=== PATIENT | male | born 1965 | race Caucasian/White ===

== ENCOUNTER 2018-08-23 16:08 | Emergency (ER) | payer BC, OTHER ==
[2018-08-23 16:24] VITALS: BP 141/67; PULSE 89; TEMP 98.5; BMI 27.0
[2018-08-23] MEDS ORDERED: METOCLOPRAMIDE HCL INJECTION 10 MG/2 ML VIAL IVPUSH ONE (16:27)
[2018-08-23] MEDS ORDERED: predniSONE 20 MG TABLET (UD) PO ONE (16:27)
[2018-08-23] MEDS ORDERED: SODIUM CHLORIDE 1,000 ML IV STA (16:27)
[2018-08-23] MEDS ORDERED: ACETAMINOPHEN 1000 MG/100 ML VIAL (NON FORMULARY) IVPB ONE (16:27)
[2018-08-23] MEDS ORDERED: ALBUTEROL SO4 2.5/IPRATROPIUM 0.5 INH SOL 3 ML VIAL.NEB. NEB ONE ×2 (16:28→16:32)
[2018-08-23] MEDS ORDERED: predniSONE 20 MG TABLET (UD) ONE (16:31)
[2018-08-23] MEDS ORDERED: ACETAMINOPHEN INJECTION 100 ML IVPB ONE (16:31)
[2018-08-23] MEDS ORDERED: METOCLOPRAMIDE HCL INJECTION 10 MG/2 ML VIAL ONE ×2 (16:32→17:18)
--- NOTE | 2018-08-23 16:39 | PDOC ---
History of Present Illness - General Chief Complaint: Respiratory Stated Complaint: COUGH, COLD SX Time Seen by Provider: 08/23/18 16:10 History Source: Patient Exam Limitations: No Limitations - History of Present Illness Initial Comments: 08/23/18 16:28 53 year old male with no past medical history, appears younger than his stated age, presents with cough x 4 days. Denies sick contacts. Did travel back from [place] approx 1 week ago. was sick with URI first, but symptoms resolved. Chest has had a chest congestion, nasal congestion, body aches, +tactile fevers , and frontal tension like headache. Was seen at urgent care several days ago. Was initiated on augmentin 875 mg BID for presumed sinusitis. However, pt does not feel any better and now reports some chest tightness when coughing. Denies smoking hx, denies asthma hx. States he has used inhalers in the past for similar types of ailments which has helped somehwat. Past History - Past Medical History Allergies/Adverse Reactions: Allergies Allergy/AdvReac Type Severity Reaction Status Date / Time No Known Allergies Allergy Verified 08/23/18 16:12 Home Medications: Ambulatory Orders Acetaminophen/Caffeine/Butalb [Fioricet -] 1 tab PO Q8H PRN #20 tablet MDD 3 Amox-Tr/K Cl [Augmentin - 875Mg Tablet] 1 tab PO BID 08/23/18 Finasteride [Propecia] 1 mg PO DAILY 08/23/18 Hcg IJ ASDIR 08/23/18 Ipratropium [place] [Atrovent Hfa] 12.9 gm IH QID PRN 08/23/18 Semorline 3 ml IJ ASDIR 08/23/18 Testosterone Cypionate [Depo-Testosterone] 100 mg IM WEEKLY 08/23/18 COPD: No Other medical history: denies - Suicide/Smoking/Psychosocial Hx Smoking History: Never smoked Have you smoked in the past 12 months: No Information on smoking cessation initiated: No Hx Alcohol Use: No Review of Systems - Review of Systems Able to Perform ROS?: Yes Comments:: 08/23/18 16:45 GENERAL/CONSTITUTIONAL: lls. No weakness. No weight change.] +tactile fever HEAD, EYES, EARS, NOSE AND THROAT: [No change in vision. No ear pain or discharge. ] +throat discomfort CARDIOVASCULAR: [No chest pain or shortness of breath.] RESPIRATORY: [No, wheezing, or hemoptysis.] + cough GASTROINTESTINAL: [No nausea, vomiting, diarrhea or constipation. No rectal bleeding.] GENITOURINARY: [No dysuria, frequency, or change in urination.] MUSCULOSKELETAL: [No joint or muscle swelling or pain. No neck or back pain.] SKIN AND BREASTS: [No rash or easy bruising.] NEUROLOGIC: [No vertigo, loss of consciousness, or loss of sensation.] +headache PSYCHIATRIC: [No depression or anxiety.] ENDOCRINE: [No increased thirst. No abnormal weight change.] HEMATOLOGIC/LYMPHATIC: [No anemia, easy bleeding, or history of blood clots.] ALLERGIC/IMMUNOLOGIC: [No hives or skin allergy. No latex allergy.] *Physical Exam - Vital Signs Last Vital Signs Temp Pulse Resp BP Pulse Ox 98.5 F 89 18 141/67 98 08/23/18 16:08 08/23/18 16:08 08/23/18 16:08 08/23/18 16:08 08/23/18 16:08 - Physical Exam Comments: 08/23/18 16:46 GENERAL: Awake, alert, and fully oriented, in no acute distress HEAD: No signs of trauma EYES: EOMI, sclera anicteric, conjunctiva clear ENT: Auricles normal inspection, hearing grossly normal, nares patent, oropharynx clear without exudates. NECK: Normal ROM, supple, no lymphadenopathy, JVD, or masses LUNGS: Breath sounds equal, clear to auscultation bilaterally. No wheezes, and no crackles. Short excursions on inspiration HEART: Regular rate and rhythm, normal S1 and S2, no murmurs, rubs or gallops EXTREMITIES: Normal range of motion, no edema. No clubbing or cyanosis. No cords, erythema, or tenderness NEUROLOGICAL: Cranial nerves II through XII grossly intact. Normal speech, normal gait SKIN: Warm, Dry, normal turgor, no rashes or lesions noted. Heart Score/ECG Review #1 ECG reviewed & interpreted by me at: 18:00 08/23/18 18:00 NSR 93, no std/jah, incomplete RBBB, T wave flat aVL, QTC 467 msec ED Treatment Course - LABORATORY CBC & Chemistry Diagram: 08/23/18 16:40 08/23/18 16:40 - RADIOLOGY Radiology Studies Ordered: Category Date Time Status CHEST PA & LAT [RAD] Stat Radiology 08/23/18 16:27 Ordered Medical Decision Making - Medical Decision Making 08/23/18 16:47 Vital Signs Temp Pulse Resp BP Pulse Ox 98.5 F 89 18 141/67 98 08/23/18 16:08 08/23/18 16:08 08/23/18 16:08 08/23/18 16:08 08/23/18 16:08 Impression: Viral syndrome vs bronchitis vs pneumonia. Pt's breath sounds are somewhat tight. However, no history of asthma. But will trial duonebs and prednisone. Pt's headache likely secondary to URI infection as opposed to meningitis, encephalitis. Will treat pt's headache, cough, nasal congestion. Chest xray, labs, and reassess. 08/23/18 17:40 CBC, BMP 08/23/18 16:40 08/23/18 16:40 CMP Sodium 139 mmol/L (136-145) 08/23/18 16:40 Potassium 4.1 mmol/L (3.5-5.1) 08/23/18 16:40 Chloride 101 mmol/L (98-107) 08/23/18 16:40 Carbon Dioxide 28 mmol/L (21-32) 08/23/18 16:40 Anion Gap 10 MMOL/L (8-16) 08/23/18 16:40 BUN 20 mg/dl (7-18) H 08/23/18 16:40 Creatinine 1.1 mg/dl (0.55-1.3) 08/23/18 16:40 Creat Clearance w eGFR 70.29 (>60) 08/23/18 16:40 Random Glucose 115 mg/dl (74-106) H 08/23/18 16:40 Calcium 8.5 mg/dl (8.5-10) 08/23/18 16:40 Magnesium 1.9 mg/dL (1.8-2.4) 08/23/18 16:40 Total Bilirubin 0.7 mg/dl (0.2-1) 08/23/18 16:40 AST 32 U/L (15-37) 08/23/18 16:40 ALT 33 U/L (13-61) 08/23/18 16:40 Alkaline Phosphatase 57 U/L (45-117) 08/23/18 16:40 Troponin I < 0.03 ng/ml (0.00-0.05) 08/23/18 16:20 Total Protein 6.5 g/dl (6.4-8.2) 08/23/18 16:40 Albumin 3.9 g/dl (3.4-5.0) 08/23/18 16:40 08/23/18 19:10 Chest xray reviewed by me, pending official radiology. No infiltrates. initially, I had considered CT chest, but after speaking with the patient, the patient declines. I agree that this is likely a viral syndrome or bronchitis or sinusitis. Pt feels better with the headache medication. I advised that since the patient is already on augmentin that he should complete the course (the antibiotic already prescribed by urgent care). I did give a strict return precaution and informed about potential viral meningitis. I advised that if the patient did have neck stiffness with fevers and/or severe headaches, pt should return to the ER. Pt and pt's verbalizes understanding and agrees with plan. *DC/Admit/Observation/Transfer Diagnosis at time of Disposition: Viral syndrome - Discharge Dispostion Disposition: HOME Condition at time of disposition: Improved Decision to Admit order: No - Prescriptions Prescriptions: Acetaminophen/Caffeine/Butalb [Fioricet -] 1 tab PO Q8H PRN #20 tablet MDD 3 PRN Reason: Headache - Referrals Referrals: Connie Lorenzo MD [Primary Care Provider] - - Patient Instructions Printed Discharge Instructions: DI for Viral Syndrome Additional Instructions: Your workup demonstrates no acute findings at this time. Your preliminary chest xray read showed no pneumonia. Since you have been start on augmentin (antibiotic), please finish it. You may take 600 mg ibuprofen every 6 to 8 hours as needed for pain. For severe headache, you may take a fiorciet every 8 hours as needed. If you have uncontrollable headache and/or high fevers and severe neck stiffness , you must return to the ER. Please follow up with your doctor. - Post Discharge Activity Forms/Work/School Notes: Back to Work
[2018-08-23 17:07] LABS: BASO % 0.3 % (0-2.0); EOS % 2.1 % (0-4.5); HEMATOCRIT 48.5 % (35.4-49); HEMOGLOBIN 15.7 GM/dl (11.7-16.9); LYMPH % 20.7 % (8-40); MCH 26.9 pg (25.7-33.7); MCHC 32.3 g/dl (32.0-35.9); MEAN CELL VOLUME 83.3 fl (80-96); MEAN PLT VOLUME 9.1 fl (7.5-11.1); MONO % 8.6 % (3.8-10.2); NEUT % 68.3 % (42.8-82.8); PLATELET COUNT 170 K/MM3 (134-434); RBC 5.82 M/mm3 (4.00-5.60); RDW 14.5 % (11.9-15.9); WHITE BLOOD COUNT 5.3 K/mm3 (4.0-10.8)
[2018-08-23 17:20] LABS: ALBUMIN 3.9 g/dl (3.4-5.0); ALK PHOS 57 U/L (45-117); ANION GAP 10 MMOL/L (8-16); BILIRUBIN,TOTAL 0.7 mg/dl (0.2-1); BLOOD UREA NITROGEN 20 mg/dl (7-18); CALCIUM 8.5 mg/dl (8.5-10); CHLORIDE 101 mmol/L (98-107); CO2 28 mmol/L (21-32); CREATININE 1.1 mg/dl (0.55-1.3); GLUCOSE,RANDOM 115 mg/dl (74-106); MAGNESIUM 1.9 mg/dL (1.8-2.4); POTASSIUM 4.1 mmol/L (3.5-5.1); SGOT/AST 32 U/L (15-37); SGPT/ALT 33 U/L (13-61); SODIUM 139 mmol/L (136-145); TOT PROT 6.5 g/dl (6.4-8.2)
--- NOTE | 2018-08-24 08:31 | EKG ---
Test Reason : Blood Pressure : / mmHG Vent. Rate : 093 BPM Atrial Rate : 093 BPM P-R Int : 148 ms QRS Dur : 100 ms QT Int : 376 ms P-R-T Axes : 073 -18 058 degrees QTc Int : 467 ms NORMAL SINUS RHYTHM POSSIBLE LEFT ATRIAL ENLARGEMENT INCOMPLETE RIGHT BUNDLE BRANCH BLOCK BORDERLINE ECG NO PREVIOUS ECGS AVAILABLE Confirmed by MD GIOVANNY, TONY ([id number]) on 08/24/2018 8:31:13 AM Referred By: DR NEFF Confirmed By:TONY BALTAZAR MD
== END 2018-08-23 19:55 | disposition home or self-care (01) ==
LOC: FER 16:08
PROC: 3E033NZ Introduction of Analgesics, Hypnotics, Sedatives into Peripheral Vein, Percutaneous Approach (ICD-10-PCS; principal; 2018-08-23)
PROC: 3E0337Z Introduction of Electrolytic and Water Balance Substance into Peripheral Vein, Percutaneous Approach (ICD-10-PCS; 2018-08-23)
PROC: 3E033GC Introduction of Other Therapeutic Substance into Peripheral Vein, Percutaneous Approach (ICD-10-PCS; 2018-08-23)
PROC: 3E0F7GC Introduction of Other Therapeutic Substance into Respiratory Tract, Via Natural or Artificial Opening (ICD-10-PCS; 2018-08-23)
DX: B34.9 Viral infection, unspecified (principal)
CPT/HCPCS: 36415; 71046-TC-FY; 80053; 83735; 84484; 85025; 93005; 99284-25; J0131; J7030

== ENCOUNTER 2021-04-14 12:20 | Emergency (ER) | payer OTHER ==
[2021-04-14 12:44] VITALS: BMI 28.5
[2021-04-14] MEDS ORDERED: IBUPROFEN 600 MG TABLET (FP) PO ONE ×2 (12:50→13:01)
[2021-04-14 14:17] VITALS: BP 123/77; PULSE 97; TEMP 100.6
== END 2021-04-14 14:30 | disposition home or self-care (01) ==
LOC: FER 12:20
DX: B34.9 Viral infection, unspecified (principal)
CPT/HCPCS: 71045-TC-FY; 87804; 87807; 99284-25; C9803; U0003; U0005